=== PATIENT | female | born 1945 | race Caucasian/White ===

== ENCOUNTER 2022-12-05 06:26 | Day surgery (SDC) | payer MEDICARE, OTHER ==
[~2022-12-05] VITALS: Ht 152.4 cm; Wt 54.4 kg
[2022-12-05] MEDS ORDERED: LIDOCAINE 2% 100 MG/5 ML UJET TP ONE (07:16)
[2022-12-05] MEDS ORDERED: diphenhydrAMINE 50 MG/ML VIAL ONE (07:16)
[2022-12-05] MEDS ORDERED: MIDAZOLAM 5 MG/5 ML VIAL ONE (07:16)
[2022-12-05] MEDS ORDERED: fentaNYL citrate 0.05 MG/ML VIAL ONE (07:16)
[2022-12-05] MEDS ORDERED: SIMETHICONE 40 MG/0.6 ML ONE (07:17)
[2022-12-05] MEDS ORDERED: fentaNYL citrate 0.05 MG/ML VIAL IVP ONE (08:10)
[2022-12-05] MEDS ORDERED: MIDAZOLAM 5 MG/5 ML VIAL IV ONE (08:10)
== END 2022-12-05 12:36 | disposition home or self-care (01) ==
LOC: MOR 06:26 → MMU 06:26 → MOR 12:36
PROVIDERS: ATTEND Internal Medicine Gastroenterology
DX: K62.5 Hemorrhage of anus and rectum (principal); D12.5 Benign neoplasm of sigmoid colon; K57.30 Diverticulosis of large intestine without perforation or abscess without bleeding; K31.89 Other diseases of stomach and duodenum; K29.70 Gastritis, unspecified, without bleeding; I10 Essential (primary) hypertension; E78.5 Hyperlipidemia, unspecified; K21.9 Gastro-esophageal reflux disease without esophagitis; Z86.73 Personal history of transient ischemic attack (TIA), and cerebral infarction without residual deficits; E11.9 Type 2 diabetes mellitus without complications; Z90.710 Acquired absence of both cervix and uterus; Z80.0 Family history of malignant neoplasm of digestive organs; Z79.899 Other long term (current) drug therapy; Z20.822 Contact with and (suspected) exposure to COVID-19
CPT/HCPCS: 43239; 45385; 87426; 88305; 88312; 88313; 88342; J2250; J3010; J1200